=== PATIENT | male | born 1945 | race Caucasian/White ===

== ENCOUNTER 2016-09-06 06:54 | Day surgery (SDC) | payer BC ==
[2016-09-03 12:03] LABS: HEMATOCRIT 32.7 % (40.0-51.0); HEMOGLOBIN 10.3 g/dL (13.6-17.8)
[2016-09-03 13:06] LABS: ASCORBIC ACID (UR NOT ORDER) NEG (NEG); BILIRUBIN, URINE NEGATIVE (NEG); KETONE, URINE NEGATIVE (NEG); LEUKOCYTE ESTERASE(NOT OR LARGE (NEG)
[2016-09-03 13:08] LABS: WBC (NOT ORDERED) (RFLEX) > 182 (0-5)
[2016-09-03 13:29] LABS: BUN (BLOOD UREA NITROGEN) 18 MG/DL (6-23); CHLORIDE, SERUM 104 MMOL/L (96-112); CO2 (CARBON DIOXIDE) 24 MMOL/L (24-34); CREATININE 1.17 MG/DL (0.70-1.30); GFR AFRICAN AMERICAN 72 ML/MIN (>=60); GFR NON AFRICAN AMERICAN 62 ML/MIN (>=60); POTASSIUM, SERUM 4.5 MMOL/L (3.5-5.3); SODIUM, SERUM 137 MMOL/L (135-148)
[2016-09-03 13:31] LABS: GLUCOSE, SERUM 134 MG/DL (60-99)
--- NOTE | ~2016-09-06 | OP ---
Record Of Operation [facility] [address] [place]. [address] NAME: CHANTALE SAXENA : 45 STATUS : REG [facility]#: [id number] AGE: 71 ADM/REG DATE : 09/06/16 MR#: [id number] REPORT SERV DATE: 09/06/16 DICTATED BY: DEVANG SHEPARD DATE: 09/06/16 REPORT STATUS : Draft TRANSCRIBED BY: MODL DATE: 09/06/16 DATE OF PROCEDURE: 09/06/2016 PREOPERATIVE DIAGNOSIS: Left ureteral stone. POSTOPERATIVE DIAGNOSIS: Left ureteral stone. PROCEDURE PERFORMED: Left extracorporeal shock wave lithotripsy (ureteral stone, initial treatment). SURGEON: Devang Shepard M.D. ANESTHESIA: MAC. COMPLICATIONS: None. INDICATIONS: Mr. Saxena is a 71-year-old, who underwent radical cystectomy about three months ago. He has had intermittent abdominal pain since his ureteral stents were removed. CT was performed. There was no apparent surgical complication. There was a surprise finding of a calcification in the left mid ureter near the upper border of the sacroiliac joint. Left hydronephrosis. He presents for ESWL. TECHNIQUE: Levaquin was given preoperatively, brought to the operating room. The stone was not visible on KUB nor was it visible on plain fluoroscopy. 50 mL of Isovue was instilled intravenously. After 45 minutes, there was a standing column of contrast in the right ureter tapering down to the area where stone had been obstructing on CT. This area was identified with biplanar fluoroscopy. A total of 2500 shocks were administered at an intensity level of 4. The Dornier Delta II shock wave lithotripter was utilized. Shocks were administered at 120 shocks per minute. It was impossible to gauge response to this treatment. I will see him back in three weeks. If he is pain free, then I will merely check a repeat CT scan at three months. LULI/MALOU Devang Shepard M.D. / [id number] CC: Keyona Mercedes CHELSEY
[~2016-09-06 06:54] MED LIST: AMB10 PO; ASAB PO; BENTYL20 PO; CALCIUM; FISH OIL1200 MG PO; GLUCOPHAGE1000 MG PO; LOP25 PO; MOBIC15 MG PO; MULTI-VIT HP PO; PRAVACHOL80 MG PO; PRILOSEC40 MG PO; PRIN10 PO; SYMBICORT 160/41 INH INH; VENTOLIN HFA INH; [UNRECOGNIZED DRUG - OTHER]
[2016-09-06 08:27] LABS: BUN (BLOOD UREA NITROGEN) 21 MG/DL (6-23); CHLORIDE, SERUM 109 MMOL/L (96-112); CO2 (CARBON DIOXIDE) 19 MMOL/L (24-34); CREATININE 1.15 MG/DL (0.70-1.30); GFR AFRICAN AMERICAN 74 ML/MIN (>=60); GFR NON AFRICAN AMERICAN 64 ML/MIN (>=60); GLUCOSE, SERUM 161 MG/DL (60-99); SODIUM, SERUM 140 MMOL/L (135-148)
[2016-09-06 08:34] LABS: PFA (COL/EPI) 134 SEC (72-180)
== END 2016-09-06 17:07 | disposition home or self-care (01) ==
LOC: SDC 06:54
PROVIDERS: Urology
PROC: 0TF7XZZ Fragmentation in Left Ureter, External Approach (ICD-10-PCS; principal; 2016-09-06 09:00)
DX: N20.1 Calculus of ureter (principal); E11.9 Type 2 diabetes mellitus without complications; I10 Essential (primary) hypertension; J44.9 Chronic obstructive pulmonary disease, unspecified; Z79.899 Other long term (current) drug therapy; Z85.51 Personal history of malignant neoplasm of bladder; Z93.2 Ileostomy status; Z98.890 Other specified postprocedural states
CPT/HCPCS: 50590; 74000; 80048; 81001; 82962; 85014; 85018; 85576; 87086; 93005; J2250; J2405; J3010; Q9967